=== PATIENT | female | born 1985 | race Caucasian/White ===

== ENCOUNTER → 2021-06-08 | Day surgery (SDC) | payer OTHER ==
[~2021-06-08] VITALS: Ht 180.3 cm; Wt 81.6 kg
[~2021-06-08] MED LIST: AZASITE2.5 ML EYEBOTH; LIOTHYRONINE SO5 MCG PO; PREDNISOLONE AC15 ML EYEBOTH; TIROSINT88 MCG PO
[2021-06-08 10:10] LABS: HCG (URINE) SCREEN NEGATIVE (NEGATIVE)
== END | disposition home or self-care (01) ==
LOC: FAS 09:30
PROVIDERS: Anesthesiology
DX: N72 Inflammatory disease of cervix uteri (principal); Z87.891 Personal history of nicotine dependence; Z88.2 Allergy status to sulfonamides
CPT/HCPCS: 84703; J1170; J2250; J2704; J3010; J7120